=== PATIENT | male | born 1940 | race Caucasian/White ===

== ENCOUNTER 2016-05-01 19:48 | Emergency (ER) | payer OTHER ==
[2016-05-01 19:55] VITALS: TEMP 97.6; BMI 25.0
--- NOTE | 2016-05-01 21:00 | PDOC ---
History of Present Illness - History of Present Illness Initial Comments: 05/01/16 21:22 The patient is a 76 year old male, with a significant past medical history of hypertension and peptic ulcers, who presents to the emergency department with headache since this morning. He reports the headache as constant and describes the headache as a throbbing pain from the back of his head to his forehead and behind his eyes. He reports running out of medication (Amlodipine 5mg) 2 weeks ago and was feeling fine, until 2 days ago when he felt his blood pressure was high. He reports calling a friend who also takes Amlodipine for hypertension and obtained a few pills from his friend. He states his friends prescription is for 10mg of Amlodipine, but he took the medication despite the difference in dosing because he hasnt taken the medication in a while. He reports seeing Dr. Nixon in the office 3 months ago. He denies chest pain, shortness of breath, and dizziness. He denies fever, chills, nausea, vomit, diarrhea and constipation. He denies dysuria, frequency, urgency and hematuria. Allergies: none Past surgical history: none Social history: denies toxic habits PCP - none Convex Grinder Operator: Dr. Nixon <Faith Ndiaye - Last Filed: 05/01/16 23:38> <Katherine Torres - Last Filed: 05/01/16 23:55> - General Chief Complaint: Blood Pressure Problem Stated Complaint: BLOOD PRESSURE PROBLEM Time Seen by Provider: 05/01/16 21:00 Past History <Faith Ndiaye - Last Filed: 05/01/16 23:38> - Past Medical History Anemia: No Asthma: No Cancer: No Cardiac Disorders: No CVA: No COPD: No CHF: No Dementia: No Diabetes: No GI Disorders: Yes (HX PEPTIC ULCER) Disorders: No HTN: Yes Hypercholesterolemia: Yes Liver Disease: No Seizures: No Thyroid Disease: No - Surgical History Abdominal Surgery: No Appendectomy: No Cardiac Surgery: No Cholecystectomy: No Lung Surgery: No Neurologic Surgery: No Orthopedic Surgery: No - Psycho/Social/Smoking Cessation Hx Suicidal Ideation: No Smoking History: Never smoked Have you smoked in the past 12 months: No Information on smoking cessation initiated: No Hx Alcohol Use: No Drug/Substance Use Hx: No Substance Use Type: None <Katherine Torres - Last Filed: 05/01/16 23:55> - Past Medical History Allergies/Adverse Reactions: Allergies Allergy/AdvReac Type Severity Reaction Status Date / Time No Known Allergies Allergy Verified 09/27/13 09:18 Home Medications: Ambulatory Orders Amlodipine Besylate [Norvasc -] 5 mg PO DAILY 09/27/13 Aspirin [Aspirin EC] 81 mg PO DAILY 09/27/13 Atorvastatin Ca [Lipitor] 10 mg PO HS 09/27/13 Pantoprazole Sodium [Protonix -] 40 mg PO DAILY #30 tablet.ec 09/27/13 Amlodipine Besylate [Norvasc -] 5 mg PO DAILY #30 tablet 05/01/16 Review of Systems - Review of Systems Able to Perform ROS?: Yes Comments:: 05/01/16 21:22 CONSTITUTIONAL: Absent: fever, chills, diaphoresis, generalized weakness, malaise, loss of appetite HEENT: Absent: rhinorrhea, nasal congestion, throat pain, throat swelling, difficulty swallowing, mouth swelling, ear pain, eye pain, visual Changes CARDIOVASCULAR: Absent: chest pain, syncope, palpitations, irregular heart rate, lightheadedness , peripheral edema RESPIRATORY: Absent: cough, shortness of breath, dyspnea with exertion, orthopnea, wheezing, stridor, hemoptysis GASTROINTESTINAL: Absent: abdominal pain, abdominal distension, nausea, vomiting, diarrhea, constipation, melena, hematochezia GENITOURINARY: Absent: dysuria, frequency, urgency, hesitancy, hematuria, flank pain, genital pain MUSCULOSKELETAL: Absent: myalgia, arthralgia, joint swelling SKIN: Absent: rash, itching, pallor HEMATOLOGIC/IMMUNOLOGIC: Absent: easy bleeding, easy bruising, lymphadenopathy, frequent infections ENDOCRINE: Absent: unexplained weight gain, unexplained weight loss, heat intolerance, cold intolerance NEUROLOGIC: (+) headache. Absent: focal weakness or paresthesias, dizziness, unsteady gait, seizure, mental status changes, bladder or bowel incontinence PSYCHIATRIC: Absent: anxiety, depression, suicidal or homicidal ideation, hallucinations. <Faith Ndiaye - Last Filed: 05/01/16 23:38> *Physical Exam - Vital Signs Last Vital Signs Temp Pulse Resp BP Pulse Ox 97.6 F 73 18 159/87 96 05/01/16 19:52 05/01/16 19:52 05/01/16 19:52 05/01/16 19:52 05/01/16 19:52 - Physical Exam Comments: 05/01/16 21:23 GENERAL: Well developed, well nourished. Awake and alert. No acute distress. HEENT: Normocephalic, atraumatic. PERRLA, EOMI. No conjunctival pallor. Sclera are non- icteric. Moist mucous membranes. Oropharynx is clear. NECK: Supple. Full ROM. No JVD. Carotid pulses 2+ and symmetric, without bruits. No thyromegaly. No lymphadenopathy. CARDIOVASCULAR: Regular rate and rhythm. No murmurs, rubs, or gallops. Distal pulses are 2+ and symmetric. PULMONARY: No evidence of respiratory distress. Lungs clear to auscultation bilaterally. No wheezing, rales or rhonchi. ABDOMINAL: Soft. Non-tender. Non-distended. No rebound or guarding. No organomegaly. Normoactive bowel sounds. MUSCULOSKELETAL Normal range of motion at all joints. No bony deformities or tenderness. No CVA tenderness. EXTREMITIES: No cyanosis. No clubbing. No edema. No calf tenderness. SKIN: Warm and dry. Normal capillary refill. No rashes. No jaundice. NEUROLOGICAL: Alert, awake, appropriate. Cranial nerves 2-12 intact. Normoreflexic in the upper and lower extremities. Normal speech. Toes are down-going bilaterally. Gait is normal without ataxia. PSYCHIATRIC: Cooperative. Good eye contact. Appropriate mood and affect. <Faith Ndiaye - Last Filed: 05/01/16 23:38> - Vital Signs Last Vital Signs Temp Pulse Resp BP Pulse Ox 97.6 F 73 18 159/87 96 05/01/16 19:52 05/01/16 19:52 05/01/16 19:52 05/01/16 19:52 05/01/16 19:52 <Katherine Torres - Last Filed: 05/01/16 23:55> ED Treatment Course - LABORATORY CBC & Chemistry Diagram: 05/01/16 21:40 05/01/16 21:40 - RADIOLOGY Radiograph Interpretation: 05/01/16 23:38 EXAM: CT brain without contrast was read by Gary Musa MD at 23:20 EST FINDINGS: Normal brain for age. No acute intracranial abnormality. No bleed. No visible infarct or mass. <Faith Ndiaye - Last Filed: 05/01/16 23:38> - LABORATORY CBC & Chemistry Diagram: 05/01/16 21:40 05/01/16 21:40 <Katherine Torres - Last Filed: 05/01/16 23:55> Medical Decision Making - Medical Decision Making 05/01/16 23:35 76 yo male who ran out of his BP meds 3 weeks ago dev a headache and took hisBP at home and became alarmed at how high it was -ct scan head negative plabs w exception of mild hyperglycemia are wnl -no gross focal neuro deficits -plan renew his blood pressure medications <Katherine Torres - Last Filed: 05/01/16 23:55> *DC/Admit/Observation/Transfer - Attestations Scribe Attestion: 05/01/16 21:23 Documentation prepared by Faith Ndiaye, acting as medical delivery technician for Katherine Torres MD <Faith Ndiaye - Last Filed: 05/01/16 23:38> <Katherine Torres - Last Filed: 05/01/16 23:55> Diagnosis at time of Disposition: Headache Qualifiers: Headache type: tension-type Headache chronicity pattern: unspecified pattern Intractability: not intractable Qualified Code(s): G44.209 - Tension-type headache, unspecified, not intractable - Discharge Dispostion Disposition: HOME Condition at time of disposition: Stable - Prescriptions Prescriptions: Amlodipine Besylate [Norvasc -] 5 mg PO DAILY #30 tablet - Patient Instructions Printed Discharge Instructions: DI for High Blood Pressure, DI for Headache Additional Instructions: please crop picker your medication at the pharmacy
[2016-05-01] MEDS ORDERED: METOCLOPRAMIDE HCL INJECTION 10 MG/2 ML VIAL IVPB ONE (21:09)
[2016-05-01] MEDS ORDERED: METOCLOPRAMIDE HCL INJECTION 10 MG/2 ML VIAL ONE (21:46)
[2016-05-01 21:47] LABS: BASOPHIL 0.8 % (0-2.0); MCH 29.7 pg (25.7-33.7); MCHC 33.3 g/dl (32.0-35.9); MEAN CELL VOLUME 89.1 fl (80-96); MEAN PLT VOLUME 8.3 fl (7.5-11.1); NEUTROPHILS 65.1 % (42.8-82.8); PLATELET COUNT 186 K/MM3 (134-434); RDW 13.3 % (11.9-15.9); WHITE BLOOD COUNT 6.5 K/mm3 (4.0-10.0)
[2016-05-01 22:08] LABS: ALBUMIN 3.8 g/dl (3.4-5.0); ALK PHOS 60 U/L (45-117); ANION GAP 10 (8-16); BILIRUBIN,TOTAL 0.5 mg/dL (0.2-1.0); CALCIUM 8.9 mg/dL (8.5-10.1); CO2 23 mmol/L (21-32); CREATININE 1.1 mg/dL (0.7-1.3); GLUCOSE,RANDOM 110 mg/dL (74-106); SGOT/AST 23 U/L (15-37); SGPT/ALT 43 U/L (12-78); TOT PROT 7.7 g/dl (6.4-8.2)
[2016-05-01 23:59] VITALS: BP 104/65; PULSE 54
== END 2016-05-02 00:05 | disposition home or self-care (01) ==
LOC: JER 19:48
PROC: 3E033GC Introduction of Other Therapeutic Substance into Peripheral Vein, Percutaneous Approach (ICD-10-PCS; principal; 2016-05-01)
DX: G44.209 Tension-type headache, unspecified, not intractable (principal); I10 Essential (primary) hypertension; E78.00 Pure hypercholesterolemia, unspecified
CPT/HCPCS: 36415; 70450-TC; 80053; 85025; 96374; 96375; 99281-25

== ENCOUNTER 2018-08-06 19:39 | Emergency (ER) | payer OTHER | END 2018-08-06 22:33 | disposition home or self-care (01) | LOC: JER 19:39 ==

== ENCOUNTER 2021-08-02 08:41 | Emergency (ER) | payer OTHER ==
[2021-08-02 08:51] VITALS: BP 163/72; PULSE 62; TEMP 97.4; BMI 27.1
[2021-08-02] MEDS ORDERED: DIPHTH,PERTUSS(ACELL),TET 0.5 ML DISP.SYRIN IM ONE ×2 (09:17→09:22)
[2021-08-02] MEDS ORDERED: IBUPROFEN 600 MG TABLET (FP) PO ONE ×2 (09:22→09:27)
== END 2021-08-02 10:00 | disposition home or self-care (01) ==
LOC: JER 08:41 → JERFT 08:41
PROC: 3E0234Z Introduction of Serum, Toxoid and Vaccine into Muscle, Percutaneous Approach (ICD-10-PCS; principal; 2021-08-02)
DX: L03.115 Cellulitis of right lower limb (principal)
CPT/HCPCS: 73562-TC-RT-FY; 90471; 90715; 99283-25

== ENCOUNTER 2021-08-13 08:23 | Emergency (ER) | payer OTHER ==
[2021-08-13 08:39] VITALS: BP 161/80; PULSE 54; TEMP 97.6; BMI 25.7
[2021-08-13] MEDS ORDERED: ACETAMINOPHEN 500 MG TABLET (FP) PO ONE (09:30)
[2021-08-13] MEDS ORDERED: ACETAMINOPHEN 500 MG TABLET (FP) ONE (09:37)
== END 2021-08-13 12:09 | disposition home or self-care (01) ==
LOC: JERFT 08:23 → JER 08:23 → JERFT 12:09
DX: M25.561 Pain in right knee (principal); M25.461 Effusion, right knee
CPT/HCPCS: 73564-TC-RT-FY; 93971-TC; 99284-25

== ENCOUNTER 2022-12-20 09:32 | Emergency (ER) | payer OTHER ==
[2022-12-20 09:39] VITALS: BMI 27.1
[2022-12-20 12:25] LABS: BASO % 0.6 % (0-2.0); EOS % 2.4 % (0-4.5); HEMATOCRIT 42.4 % (35.4-49); HEMOGLOBIN 14.5 GM/dL (11.7-16.9); LYMPH % 34.6 % (8-40); MCHC 34.1 g/dl (32.0-35.9); MEAN CELL VOLUME 87.7 fl (80-96); MEAN PLT VOLUME 8.5 fl (7.5-11.1); MONO % 10.5 % (3.8-10.2); NEUT % 51.9 % (42.8-82.8); PLATELET COUNT 182 10^3/uL (134-434); RBC 4.84 M/mm3 (4.00-5.60); RDW 13.9 % (11.9-15.9); WHITE BLOOD COUNT 6.4 K/mm3 (4.0-10.0)
[2022-12-20 12:50] LABS: POTASSIUM 4.5 mmol/L (3.5-5.1)
[2022-12-20 12:52] LABS: ALBUMIN 3.8 g/dl (3.4-5.0); CALCIUM 9.5 mg/dL (8.5-10.1)
[2022-12-20 12:53] LABS: BLOOD UREA NITROGEN 23.6 mg/dL (7-18)
[2022-12-20 12:54] LABS: CREATININE 1.1 mg/dL (0.55-1.3)
[2022-12-20 12:57] LABS: BILIRUBIN,TOTAL 0.7 mg/dL (0.2-1); TOT PROT 7.8 g/dl (6.4-8.2)
[2022-12-20 13:21] VITALS: BP 135/75; PULSE 62; RESP 20; TEMP 97.9
== END 2022-12-20 13:21 | disposition home or self-care (01) ==
LOC: JER 09:32
DX: R20.2 Paresthesia of skin (principal); R25.2 Cramp and spasm
CPT/HCPCS: 36415; 80053; 85025; 99283-25

== ENCOUNTER 2023-06-02 08:13 | Emergency (ER) | payer OTHER ==
[2023-06-02 08:24] VITALS: BP 157/80; PULSE 69; RESP 20; TEMP 98.2; BMI 27.1
[2023-06-02 10:05] LABS: BASO % 0.7 % (0-2.0); EOS % 2.2 % (0-4.5); HEMATOCRIT 43.2 % (35.4-49); HEMOGLOBIN 14.4 GM/dL (11.7-16.9); LYMPH % 19.5 % (8-40); MCH 29.9 pg (25.7-33.7); MCHC 33.3 g/dl (32.0-35.9); MEAN CELL VOLUME 89.8 fl (80-96); MEAN PLT VOLUME 8.2 fl (7.5-11.1); MONO % 8.9 % (3.8-10.2); NEUT % 68.7 % (42.8-82.8); PLATELET COUNT 175 10^3/uL (134-434); RBC 4.81 M/mm3 (4.00-5.60); WHITE BLOOD COUNT 8.7 K/mm3 (4.0-10.0)
[2023-06-02 10:22] LABS: POTASSIUM 4.7 mmol/L (3.5-5.1)
[2023-06-02 10:23] LABS: CALCIUM 9.3 mg/dL (8.5-10.1)
[2023-06-02 10:24] LABS: ALBUMIN 3.9 g/dl (3.4-5.0); BLOOD UREA NITROGEN 20.6 mg/dL (7-18)
[2023-06-02 10:29] LABS: TOT PROT 8.1 g/dl (6.4-8.2)
== END 2023-06-02 12:42 | disposition home or self-care (01) ==
LOC: JER 08:13
DX: R05.9 Cough, unspecified (principal); R09.81 Nasal congestion; R63.0 Anorexia; R07.9 Chest pain, unspecified; R09.82 Postnasal drip; J06.9 Acute upper respiratory infection, unspecified; Z20.822 Contact with and (suspected) exposure to COVID-19
CPT/HCPCS: 0241U-QW; 36415; 71046-TC-FY; 80053; 85025; 93005; 93010; 99285-25

== ENCOUNTER 2023-07-03 15:28 | Emergency (ER) | payer OTHER ==
[2023-07-03 16:05] VITALS: BP 135/67; PULSE 71; RESP 16; TEMP 97.6; BMI 31.8
[2023-07-03] MEDS ORDERED: LORATADINE 10 MG TABLET ONE (16:53)
[2023-07-03] MEDS: LORATADINE 10 MG TABLET PO ONE (16:57)
== END 2023-07-03 17:13 | disposition home or self-care (01) ==
LOC: JERFT 15:28
DX: J30.2 Other seasonal allergic rhinitis (principal); D22.9 Melanocytic nevi, unspecified
CPT/HCPCS: 99283-25

== ENCOUNTER 2024-01-02 09:21 | Emergency (ER) | payer OTHER ==
[2024-01-02 09:44] VITALS: BP 167/96; PULSE 76; RESP 16; TEMP 97.6; BMI 27.0
[2024-01-02 10:51] LABS: BASO % 0.4 % (0-2.0); EOS % 2.7 % (0-4.5); HEMATOCRIT 41.5 % (35.4-49); LYMPH % 37.9 % (8-40); MCH 30.3 pg (25.7-33.7); MCHC 33.6 g/dl (32.0-35.9); MEAN CELL VOLUME 90.2 fl (80-96); MEAN PLT VOLUME 8.2 fl (7.5-11.1); MONO % 9.2 % (3.8-10.2); NEUT % 49.8 % (42.8-82.8); PLATELET COUNT 158 10^3/uL (134-434); RBC 4.61 M/mm3 (4.00-5.60); RDW 13.8 % (11.9-15.9)
[2024-01-02 11:17] LABS: POTASSIUM 4.1 mmol/L (3.5-5.1)
[2024-01-02 11:20] LABS: ALBUMIN 3.8 g/dl (3.4-5.0); BLOOD UREA NITROGEN 17.1 mg/dL (7-18); CALCIUM 8.8 mg/dL (8.5-10.1)
[2024-01-02 11:23] LABS: CREATININE 1.1 mg/dL (0.55-1.3)
[2024-01-02 11:25] LABS: BILIRUBIN,TOTAL 0.8 mg/dL (0.2-1); TOT PROT 7.5 g/dl (6.4-8.2)
[2024-01-02 11:28] LABS: N-TERMINAL BNP 33.5 pg/ml (5-450)
== END 2024-01-02 13:35 | disposition home or self-care (01) ==
LOC: JER 09:21
DX: M79.89 Other specified soft tissue disorders (principal); R07.89 Other chest pain
CPT/HCPCS: 36415; 71046-TC-FY; 80053; 83880; 84484; 85025; 93005; 93010; 93970-TC; 99285-25